=== PATIENT | male | born 1955 | race African-American/Black ===

== ENCOUNTER 2022-12-01 13:44 | Emergency (ER) | payer MEDICARE, MEDICAID, SELFPAY ==
[2022-12-01] VITALS (25 sets, daily range): BP systolic 93–116; BP diastolic 61–82; PULSE 94–105; RESP 13–21; TEMP 36.6; O2SAT 95–100
--- NOTE | ~2022-12-01 | XR_ITS ---
EXAMINATION: XR chest 2V DATE: 12/01/2022 14:27 INDICATION: Chest pain. Palpitations. TECHNIQUE: Frontal and lateral views of the chest were obtained. COMPARISON: None. FINDINGS: There is mild scarring at the lung apices. No pleural effusion or pneumothorax. The heart s ize is normal. There is mild chronic anterior wedging of multiple midthoracic vertebral bodies. IMPRESSION: 1. Mild scarring at the lung apices. Reviewed, dictated and finalized at location E.
--- NOTE | 2022-12-01 13:46 | ECG_ITS ---
Measurements Intervals [place] Rate: 102 P: HI: 0 QRS: 47 QRSD: 133 T: 50 QT: 332 QTc: 433 Interpretive Statements JUNCTIONAL TACHYCARDIA INTRAVENTRICULAR CONDUCTION DELAY [130+ ms QRS DURATION] NO PREVIOUS ECG AVAILABLE FOR COMPARISON Electronically Signed On 12-01-2022 15:09:38 CDT by Praful Lira M.D.
[2022-12-01 14:07] LABS: Basophils Percent Auto 0.3 % (0.2-1.2); Eosinophils Absolute Auto 0.1 K/mm3 (0-0.3); Eosinophils Percent Auto 1.2 % (0-4.4); Hematocrit 42.3 % (42.0-52.0); Hemoglobin 14.4 g/dL (14.0-18.0); Immature Granulocyte Absolute 0.03 K/mm3 (0.00-0.031); Immature Granulocyte Percent A 0.4 % (0-0.5); Lymphocytes Absolute Auto 2.89 K/mm3 (0.9-3.2); Mean Platelet Volume 10.4 fl (7.4-10.4); Monocytes Absolute Auto 0.8 K/mm3 (0.1-0.6); Monocytes Percent Auto 12.1 % (2.6-8.5); Platelet Count Result 172 k/mm3 (150-375); Red Blood Count 4.23 M/mm3 (4.6-6.20); Red Cell Distribution Width 13.8 % (11.5-14.5); White Blood Count 6.9 K/mm3 (4.5-10.0)
[2022-12-01 14:23] LABS: Alanine Aminotransferase 29 U/L (6-50); Albumin Level 4.6 g/dL (3.5-5.1); Alkaline Phosphatase 75 U/L (38-126); Anion Gap 5 mmol/L (8-16); Aspartate Amino Transferase 33 U/L (17-59); Bilirubin,Total 0.8 mg/dL (0.2-1.3); Blood Urea Nitrogen 12 mg/dL (9-20); Calcium 8.8 mg/dL (8.4-10.2); Carbon Dioxide 28 mmol/L (22-30); Chloride 100 mmol/L (98-107); Estimated CRCL calculation 68 ml/min; Estimated Glomerular Filt Rate > 60; Glucose 130 mg/dL (65-110); Lipase 164 U/L (23-300); Partial Thromboplastin Time 30.6 SECONDS (22.3-36.8); Potassium 3.6 mmol/L (3.4-5.0); Sodium 133 mmol/L (137-145)
[2022-12-01 14:34] LABS: Troponin I < 0.012 ng/mL (0.000-0.034)
[2022-12-01] MEDS: ASPIRIN 81 MG CHEWABLE TABLET 324 MG PO (14:41)
--- NOTE | 2022-12-01 15:39 | ED.CHESTPAIN ---
HPI - Chest Pain General Chief Complaint: Chest Pain Stated Complaint: Chest Pain Time Seen by Provider: 12/01/22 14:48 History of Present Illness HPI narrative: Patient is a 67-year-old male who presents ER with palpitations. Reports his heart was racing earlier today causing pressure in his chest so he took his home metoprolol and flecainide. He had forgotten to take it earlier this morning. Reports this happens regularly and he will take the medication and things will go away. He is a patient of Dr. Al at [facility]. Patient denies any coronary disease and has no stents. He denies ever having a cardiac catheterization. No discomfort at this time. No radiation of his discomfort when he had it. No runny nose sore throat or cough. No lower extremity swelling. Related Data Allergies Allergy/AdvReac Type Severity Reaction Status Date / Time No Known Allergies Allergy Verified 12/01/22 13:45 Review of Systems Review of Systems: All systems reviewed & are unremarkable except as noted in HPI and below Constitutional: Constitutional: Denies chills, Denies fatigue and Denies fever(s) ENT: Denies nasal congestion and Denies sore throat Cardiovascular: Cardiovascular: Reports chest pain, Reports rapid heart rate and Denies radiating jaw, neck or arm pain Respiratory: Respiratory: Denies cough and Denies dyspnea Gastrointestinal: Gastrointestinal: Denies abdominal pain, Denies nausea and Denies vomiting PMFSH Past Medical History Medical History (Updated 12/01/22 @ 18:32 by Camron Cutler MD) Hyperlipidemia Hypertension Surgical History Surgical History (Updated 12/01/22 @ 17:05 by Camron Cutler MD) No pertinent past surgical history Exam Narrative: GENERAL: Well-appearing, well-nourished, and in no acute distress. HEAD: Normocephalic, atraumatic. EYES: PERRL and EOMI. ENT: Mucous membranes moist. CHEST: Clear to auscultation. No respiratory distress. HEART: Regular rate and rhythm. Normal peripheral pulses. ABDOMEN: Soft, nontender, nondistended. EXTREMITIES: Normal range of motion. No edema. SKIN: Warm, dry, no rash. NEURO: Alert and oriented x3. PSYCH: Normal mood and affect. Course Course Emergency Course: Patient educated on lab results and EKG results. Recommend admission to hospital due to chest discomfort with elevated heart score, junctional tachycardia on his EKG, and his recent chest pain. Patient does not wish to be hospitalized. He is consenting to have a second troponin drawn and we will then discuss his potential admission at that time. Patient reports anytime he has the symptoms they improve with his home medications. He likely does have an arrhythmia. Second troponin negative. Patient would like to go home. He has had no chest pain since being here. It is likely that he just had rate dependent symptoms that resolved with administration of his antiarrhythmic medications. Encourage compliance with meds. Discharge home. Vital Signs Vital signs: Vital Signs Temperature 97.8 F 12/01/22 13:58 Pulse Rate 94 12/01/22 13:58 Respiratory Rate 20 12/01/22 13:58 Blood Pressure 93/67 L 12/01/22 13:58 Pulse Oximetry 95 12/01/22 13:58 Oxygen Delivery Room Air 12/01/22 13:58 Temperature 97.8 F 12/01/22 13:58 Pulse Rate 104 H 12/01/22 17:47 Respiratory Rate 20 12/01/22 17:47 Blood Pressure 103/74 12/01/22 17:32 Pulse Oximetry 99 12/01/22 17:47 Oxygen Delivery Room Air 12/01/22 13:58 MDM - Chest Pain Lab Data 12/01/22 14:01 12/01/22 14:01 Labs: Lab Results 12/01/22 12/01/22 Range/Units 14:01 16:45 WBC 6.9 (4.5-10.0) K/mm3 RBC 4.23 L (4.6-6.20) M/mm3 Hgb 14.4 (14.0-18.0) g/dL Hct 42.3 (42.0-52.0) % MCV 100.0 (80-100) fl MCH 34.0 (26-34) pg MCHC 34.0 (32-36) g/dl RDW 13.8 (11.5-14.5) % Plt Count 172 (150-375) k/mm3 MPV 10.4 (
[2022-12-01 17:19] LABS: Troponin I < 0.012 ng/mL (0.000-0.034)
== END 2022-12-01 18:41 | disposition home or self-care (01) ==
PROVIDERS: Emergency Provider Emergency Medicine; PCP Internal Medicine Cardiovascular Disease
DX: R07.9 Chest pain, unspecified (principal); E78.5 Hyperlipidemia, unspecified; I10 Essential (primary) hypertension
CPT/HCPCS: 36415; 71046; 80053; 83690; 84484; 85025; 85610; 85730; 93005; 99284; A9270